=== PATIENT | female | born 1985 | race Caucasian/White ===

== ENCOUNTER → 2017-06-13 18:51 | Observation (INO) ==
--- NOTE | 2017-06-13 14:56 | OB/GYN History & Physical ---
Date of Encounter: 06/13/17 Time of Encounter: 14:54 Assessment and Plan (1) 32 weeks gestation of Current visit: Yes Status: Acute Patient admitted for observation (2) Hypertension affecting in third trimester Current visit: Yes Status: Acute BP on admission 174/103 and 181/107 IV labetalol 20mg IVP given PIH labs drawn Protein creat ratio sent to lab Dr. Vasquez notified Steriods after CBC History of Present Illness Chief complaint: Elevated BP at 32w4d HPI: Ms. Baker is a 31 year old female at 32w4d send to labor and delivery for PIH evaluation following her OB appointment. Patient had BP of 168/102 with 500 protein in her urine. Patient denies visual disturbances, epigastric pain, contractions, LOF or VB. Patient reports +FM and headache off and on that goes away without medication. Past Med Surg Social Fam HX - Past Medical History Source: patient Medical history: no medical history Psychiatric history: no psych history - Past Surgical History Surgical History: no surgical history - Social History Smoking Status: Never smoker Smokeless Tobacco Status: No Alcohol use: none Drug use: none Current living situation: Home - Independent Activity Level: Independent ambulation Recent Out of Country Travel Within the Last 8 Weeks: No Exposure or Possible Exposure to Illness During Travel: No - Family History Father Living Status: Still Living Hx Family Cardiac Disorders: Yes (HTN) Hx Family Respiratory Disorders: No Hx Family Cancer: No Hx Family GI Disorders: No Hx Family Genitourinary Disorders: No Hx Family Endocrine Disorder: No Hx Family Musculoskeletal Disorders: No Hx Family Neuromuscular Disorders: No Hx Family Neurologic Disorders: No Hx Family HEENT Disorders: No Hx Family Autoimmune Disorders: No Hx Family Reproductive Disorders: No Hx Family Psychosocial Disorders: No Hx Family Medical Disorders: No Obstetrical History - Pregnancies : 1 Para: 0 Term: 0 : 0 Ab's: 0 Livin Medications and Allergies Omeprazole [PriLOSEC] 20 mg PO DAILY 06/13/17 [History] Pnv Cmb#21/Iron/Folic Acid [ Complete Caplet] 1 each PO DAILY 06/13/17 [ History] 3 Allergy/AdvReac Type Severity Reaction Status Date / Time No Known Allergies Allergy Verified 06/13/17 14:13 Review of System OB - Constitutional Constitutional ROS IM: headache(s) (occasional), no chills, no fever(s) - Cardiovascular Cardiovascular: pedal edema (bilateral), no chest pain, no lightheadedness, no palpitations - Respiratory Respiratory: no cough, no wheezing - Gastrointestinal Gastrointestinal: no abdominal pain, no cramping, no diarrhea, no heartburn, no nausea, no vomiting - Genitourinary Genitourinary: no abnormal vaginal bleeding, no dysuria, no flank pain, no urinary frequency, no urinary incontinence, no urinary urgency, no vaginal discharge, no vaginal odor, no vaginal pruritis - Neurological Nerological: no dizziness, no loss of vision, no numbness, no syncope, no tingling, no vertigo Exam - Constitutional Constitutional: well developed, well nourished, no acute distress, average body habitus - HEENT HEENT: Normocephaly, Mucus Membranes Moist - Neck Neck exam: full ROM, supple - Lungs Respiratory exam: CTAB - Cardiovascular Cardiovascular exam: RRR, +S1, +S2 - Abdomen Abdomen: Present: bowel sounds normal, gravid, non tender - Extremities Extremities exam: full ROM, normal capillary refill, pedal edema (2+) Deep Tendon Reflex Grade: 2+ Normal (left side) - Vagina Vagina: Present: normal moisture - Uterus Uterus exam: Present: normal size, normal contour - Anus/Rectum Anus/Rectum: Present: normal perianal skin (FHR 135 bpm moderate amount variability No contractions noted) Results All other labs normal. - VTE Reasons for not Prescribing Prophylaxis: Treatment not Indicated - Low risk for VTE
[2017-06-13 15:40] LABS: Basophils % 0.2 %; Eosinophils % 0.2 %; Hematocrit 35.9 % (35.3-44.9); Hemoglobin 12.4 g/dL (11.5-15.4); Immature Granulocytes % 0.7 % (0-4); Lymphocytes % 17.6 %; Mean Corpuscular HGB Conc 34.5 g/dL (31.6-35.5); Mean Corpuscular Volume 83.9 fL (83.0-100.0); Mean Platelet Volume 12.2 fL (9.4-12.4); Monocytes # 0.8 K/mcL (0.0-1.3); Monocytes % 7.2 %; Neutrophils # 8.4 K/mcL (1.6-8.9); Nucleated Red Blood Cells 0.4 /100 WBC (0); Platelet Count 111 K/mcL (140-400); Red Blood Count 4.28 M/mcL (3.82-4.97); Red Cell Distribution Width 14.7 % (11.5-14.5); Segmented Neutrophils % 74.1 %
[2017-06-13 16:07] LABS: Amphetamine Screen,Urine Negative ng/mL (Cutoff=1000); Barbiturate Screen,Urine Negative ng/mL (Cutoff=200); Benzodiazepines Screen,Urine Negative ng/mL (Cutoff=200); Cannabinoid Screen,Urine Negative ng/mL (Cutoff = 50); Cocaine Screen,Urine Negative ng/mL (Cutoff= 300); Opiate Screen,Urine Negative ng/mL (Cutoff=300); Phencyclidine Screen,Urine Negative ng/mL (Cutoff=25)
[2017-06-13 17:37] LABS: Alanine Aminotransferase 78 Units/L (7-52); Aspartate Amino Transferase 53 Units/L (13-39); BUN/Creatinine Ratio 25 (6-26); Blood Urea Nitrogen 15 mg/dL (6-20); Lactate Dehydrogenase 297 Units/L (140-271); Uric Acid 7.4 mg/dL (2.3-7.6); eGFR For African Americans > 60 (> 60); eGFR For Non-African Americans > 60 (> 60)
[2017-06-13 17:44] VITALS: BP 176/106
[2017-06-13 17:44] LABS: Creatinine,Urine 198 mg/dL; Protein/Creatinine Ratio,Urine 8.09 mg/mg (0.00-0.20)
[~2017-06-13 18:51] MED LIST: *HR* Labetalol 20 MG/4 ML SYRINGE IVP STA; Betamethasone Acet/SodPhos 6 MG/ML MDV IM SCH; Calcium Gluconate 1,000 MG/10 ML VIAL IVPB PRN; Magnesium Sulfate 20 gm/500mL 20 GM/500 ML IV.SOLN IVC SCH; Ringers Solution, Lactated 1,000 ML IVC SCH; Ringers Solution, Lactated 1,000 ML ONE
--- NOTE | 2017-06-13 19:53 | Discharge Summary ---
Date of Encounter: 06/13/17 Time of Encounter: 18:00 - Discharge Diagnosis (1) First in adolescent 16 years of age or older in third trimester Priority: Primary Status: Acute (2) Severe preeclampsia Priority: Primary Status: Acute Comments: Patient was started on magnesium sulfate had received a dose of labetalol IV push and by mouth and 1 dose of hydralazine to get blood pressure under control. She received 1 dose of betamethasone unstable she was transferred to the [facility]. Qualifiers: Trimester: third trimester Qualified Code(s): O14.13 - Severe pre-eclampsia , third trimester (3) HELLP syndrome (HELLP), third trimester Priority: Primary Status: Acute (4) 32 weeks gestation of Priority: Primary Status: Acute - Discharge Medications Home Medications: Omeprazole [PriLOSEC] 20 mg PO DAILY 06/13/17 [History] Pnv Cmb#21/Iron/Folic Acid [ Complete Caplet] 1 each PO DAILY 06/13/17 [ History] Allergies/Adverse Reactions: 3 Allergy/AdvReac Type Severity Reaction Status Date / Time No Known Allergies Allergy Verified 06/13/17 14:13 Data Procedures and tests throughout hospitalization: Laboratory Tests 06/13/17 06/13/17 06/13/17 13:57 14:48 15:30 WBC 11.3 H RBC 4.28 Hgb 12.4 Hct 35.9 MCV 83.9 MCH 29.0 MCHC 34.5 RDW 14.7 H Plt Count 111 L MPV 12.2 Immature Gran % 0.7 Seg Neutrophils % 74.1 Lymphocytes % 17.6 Monocytes % 7.2 Eosinophils % 0.2 Basophils % 0.2 Neutrophils # 8.4 Lymphocytes # 2.0 Monocytes # 0.8 Eosinophils # 0.0 Basophils # 0.0 Nucleated RBCs/100 WBC 0.4 H BUN Creatinine Est GFR ( Amer) Est GFR (Non-Af Amer) BUN/Creatinine Ratio Uric Acid AST ALT Lactate Dehydrogenase Urine Creatinine 198 Protein/Creatinin Ratio 8.09 H Urine Total Protein 1602 H Urine Opiates Screen Negative Ur Barbiturates Screen Negative Ur Phencyclidine Scrn Negative Ur Amphetamines Screen Negative U Benzodiazepines Scrn Negative Urine Cocaine Screen Negative U Marijuana (THC) Screen Negative Specimen Rejected Clotted 06/13/17 17:20 WBC RBC Hgb Hct MCV MCH MCHC RDW Plt Count MPV Immature Gran % Seg Neutrophils % Lymphocytes % Monocytes % Eosinophils % Basophils % Neutrophils # Lymphocytes # Monocytes # Eosinophils # Basophils # Nucleated RBCs/100 WBC BUN 15 Creatinine 0.61 Est GFR ( Amer) > 60 Est GFR (Non-Af Amer) > 60 BUN/Creatinine Ratio 25 Uric Acid 7.4 AST 53 H ALT 78 H Lactate Dehydrogenase 297 H Urine Creatinine Protein/Creatinin Ratio Urine Total Protein Urine Opiates Screen Ur Barbiturates Screen Ur Phencyclidine Scrn Ur Amphetamines Screen U Benzodiazepines Scrn Urine Cocaine Screen U Marijuana (THC) Screen Specimen Rejected Labs on day of discharge: Labs from last 24 hours 06/13/17 06/13/17 06/13/17 17:20 15:30 14:48 WBC 11.3 H RBC 4.28 Hgb 12.4 Hct 35.9 MCV 83.9 MCH 29.0 MCHC 34.5 RDW 14.7 H Plt Count 111 L MPV 12.2 Immature Gran % 0.7 Seg Neutrophils % 74.1 Lymphocytes % 17.6 Monocytes % 7.2 Eosinophils % 0.2 Basophils % 0.2 Neutrophils # 8.4 Lymphocytes # 2.0 Monocytes # 0.8 Eosinophils # 0.0 Basophils # 0.0 Nucleated RBCs/100 WBC 0.4 H BUN 15 Creatinine 0.61 Est GFR ( Amer) > 60 Est GFR (Non-Af Amer) > 60 BUN/Creatinine Ratio 25 Uric Acid 7.4 AST 53 H ALT 78 H Lactate Dehydrogenase 297 H Urine Creatinine Protein/Creatinin Ratio Urine Total Protein Urine Opiates Screen Ur Barbiturates Screen Ur Phencyclidine Scrn Ur Amphetamines Screen U Benzodiazepines Scrn Urine Cocaine Screen U Marijuana (THC) Screen Specimen Rejected Clotted 06/13/17 13:57 WBC RBC Hgb Hct MCV MCH MCHC RDW Plt Count MPV Immature Gran % Seg Neutrophils % Lymphocytes % Monocytes % Eosinophils % Basophils % Neutrophils # Lymphocytes # Monocytes # Eosinophils # Basophils # Nucleated RBCs/100 WBC BUN Creatinine Est GFR ( Amer) Est GFR (Non-Af Amer) BUN/Creatinine Ratio Uric Acid AST ALT Lactate Dehydrogenase Urine Creatinine 198 Protein/Creatinin Ratio 8.09 H Urine Total Protein 1602 H Urine Opiates Screen Negative Ur Barbiturates Screen Negative Ur Phencyclidine Scrn Negative Ur Amphetamines Screen Negative U Benzodiazepines Scrn Negative Urine Cocaine Screen Negative U Marijuana (THC) Screen Negative Specimen Rejected Date of admission: 06/13/17 13:45 Primary care physician: Amanda Dumont CNP Discharging clinician: Bryant Vasquez Anticipated date of discharge: 06/13/17 - Patient Status Disposition: Transfer Other Condition: Critical Functional capacity at discharge: bed bound Overall status at discharge: patient is not back to baseline - Discharge Instructions Follow Up With: Amanda Dumont CNP [Primary Care Provider] - Kiersten Barron DO [Partnered Physician] - - Diet and Activity Activity: other Hospital Course [employer]MI[employer] Reason for admission: other (Intrauterine at 32-4/7 weeks, severe preeclampsia in HELLP syndrome) Discharge diagnosis: other (Same) Hospital course: Patient is a 31-year-old at 32-4/7 weeks who was sent in from the office secondary to elevated blood pressures with proteinuria. Patient had had no complications by today she was noted to have this elevated blood pressure 500 on protein dip and increase in edema she was not complaining of any headaches blurred vision or scotoma. Patient had markedly elevated blood pressures when she arrived she was given 1 dose of labetalol 20 mg IV push to bring the blood pressure down and we placed her on 200 mg labetalol by mouth. Patient to get PIH labs but in the process of waiting for the labs to come back patient blood pressure started to creep up we decided this time was started on magnesium sulfate for gram loading dose and 2 g an hour for possible preeclampsia patient' s blood pressure continued to elevate we gave her 1 dose of hydralazine 10 mg and blood pressures stabilized. Patient's PIH labs to come back abnormal patient's platelets were low liver enzymes were elevated and she had approaching creatinine ratio of 8.09. Case was discussed with [facility] who accepted the transfer due to patient's status and patient was transferred by EMS with magnesium sulfate running. Blood pressure upon discharge was stable and she was still asymptomatic. Time Attestation: Total time spent providing and/or coordinating discharge services: Exam - Constitutional Vitals: Pulse Resp BP 82 16 176/106 06/13/17 17:36 06/13/17 17:36 06/13/17 17:36 General appearance IM: mild distress, A&O X 3 - Respiratory Respiratory exam: Present: CTAB - Cardiovascular Cardiovascular exam IM: Present: RRR - External exam: swelling - VTE Reasons for not Prescribing Prophylaxis: Treatment not Indicated - Low risk for VTE
== END | disposition other institution (70) ==
LOC: 1NENULAB
PROVIDERS: ADMIT Obstetrics & Gynecology; ATTEND Obstetrics & Gynecology

== ENCOUNTER → 2019-12-13 12:01 | Observation (INO) | END | disposition home or self-care (01) | LOC: 1NENULAB | PROVIDERS: ADMIT Obstetrics & Gynecology; ATTEND Obstetrics & Gynecology ==

== ENCOUNTER → 2019-12-14 23:23 | Observation (INO) | END | disposition home or self-care (01) | LOC: 1NENULAB | PROVIDERS: ADMIT Obstetrics & Gynecology; ATTEND Obstetrics & Gynecology ==

== ENCOUNTER 2019-12-15 14:15 | Inpatient (IN) ==
[2019-12-15 13:25] LABS: Basophils % 0.3 %; Eosinophils % 0.1 %; Hematocrit 39.5 % (35.3-44.9); Hemoglobin 13.3 g/dL (11.5-15.4); Immature Granulocytes % 0.6 % (0-4); Lymphocytes # 1.7 K/mcL (0.6-4.6); Lymphocytes % 14.5 %; Mean Corpuscular HGB Conc 33.7 g/dL (31.6-35.5); Mean Corpuscular Hemoglobin 29.4 pg (28.0-33.3); Mean Corpuscular Volume 87.4 fL (83.0-100.0); Mean Platelet Volume 11.3 fL (9.4-12.4); Monocytes # 0.7 K/mcL (0.0-1.3); Monocytes % 5.8 %; Neutrophils # 9.1 K/mcL (1.6-8.9); Platelet Count 237 K/mcL (140-400); Red Blood Count 4.52 M/mcL (3.82-4.97); Red Cell Distribution Width 16.1 % (11.5-14.5); Segmented Neutrophils % 78.7 %; White Blood Count 11.5 K/mcL (4.3-11.1)
[2019-12-15 13:30] LABS: Amphetamine Screen,Urine Negative ng/mL (Cutoff=1000); Barbiturate Screen,Urine Negative ng/mL (Cutoff=200); Benzodiazepines Screen,Urine Negative ng/mL (Cutoff=200); Cannabinoid Screen,Urine Negative ng/mL (Cutoff = 50); Cocaine Screen,Urine Negative ng/mL (Cutoff= 300); Creatinine,Urine 81 mg/dL; Opiate Screen,Urine Negative ng/mL (Cutoff=300); Phencyclidine Screen,Urine Negative ng/mL (Cutoff=25); Protein/Creatinine Ratio,Urine 0.16 mg/mg (0.00-0.20)
[2019-12-15 13:41] LABS: Alanine Aminotransferase 16 Units/L (7-52); Aspartate Amino Transferase 15 Units/L (13-39); BUN/Creatinine Ratio 15 (6-26); Blood Urea Nitrogen 8 mg/dL (6-20); Calcium 9.5 mg/dL (8.6-10.3); Carbon Dioxide 21 mEq/L (23-29); Chloride 106 mEq/L (98-107); Glucose 74 mg/dL (70-105); Lactate Dehydrogenase 149 Units/L (140-271); Osmolality,Calculated 283 (280-300); Potassium 3.5 mEq/L (3.5-5.1); Sodium 138 mEq/L (136-145); Uric Acid 5.7 mg/dL (2.3-7.6); eGFR For African Americans > 60 (> 60); eGFR For Non-African Americans > 60 (> 60)
[~2019-12-15 14:15] MED LIST changes: -*HR* Labetalol 20 MG/4 ML SYRINGE IVP STA; -Betamethasone Acet/SodPhos 6 MG/ML MDV IM SCH; -Calcium Gluconate 1,000 MG/10 ML VIAL IVPB PRN; +CeFAZolin 2,000 MG/50 ML BAG IVPB ONE; +Famotidine 20 MG/2 ML VIAL IVP ONE; -Magnesium Sulfate 20 gm/500mL 20 GM/500 ML IV.SOLN IVC SCH; +Metoclopramide 10 MG/2 ML VIAL IVP ONE; -Ringers Solution, Lactated 1,000 ML ONE
[2019-12-15] MEDS ORDERED: EPHEDrine 50 MG/ML VIAL ONE (14:28)
[2019-12-15] MEDS ORDERED: *HR* Morphine Sulfate/PF 10 MG/10 ML AMPUL ONE (14:28)
[2019-12-15] MEDS ORDERED: *HR* Oxytocin 10 UNIT/ML VIAL IM ONE (14:28)
[2019-12-15] MEDS ORDERED: *HR* FentaNYL (PF) 100 MCG/2 ML VIAL ONE (14:28)
[2019-12-15] MEDS ORDERED: Ondansetron 4 MG/2 ML VIAL IVP ONE (14:38)
[2019-12-15] MEDS ORDERED: *HR* Promethazine 25 MG/ML VIAL IVP PRN (14:38)
[2019-12-15] MEDS ORDERED: *HR* HYDROmorphone PF 0.5 MG/0.5 ML SYRINGE IVP PRN (14:38)
[2019-12-15] MEDS ORDERED: *HR* OxyCODONE Immed Rel 5 MG TABLET PO PRN (14:38)
[2019-12-15] MEDS ORDERED: Acetaminophen IV 1,000 MG/100 ML INFUS..BTL ONE (15:02)
[2019-12-15] MEDS ORDERED: Ondansetron 4 MG/2 ML VIAL ONE (15:02)
[2019-12-15] MEDS ORDERED: Ringers Solution, Lactated 1,000 ML ONE (15:02)
[2019-12-15] MEDS ORDERED: Oxytocin 20 units/ LR 1000 mL 20 UNIT/1,000 ML BAG IVC ONE (15:56)
[2019-12-15] MEDS ORDERED: Oxytocin 20 units/ LR 1000 mL 20 UNIT/1,000 ML BAG IVC SCH (18:49)
[2019-12-15] MEDS ORDERED: Metoclopramide 10 MG/2 ML VIAL IVP PRN (18:49)
[2019-12-15] MEDS ORDERED: Ondansetron 4 MG/2 ML VIAL IVP PRN (18:49)
[2019-12-15] MEDS ORDERED: *HR* OxyCODONE/APAP 5/325 TABLET PO PRN (18:49)
[2019-12-15] MEDS ORDERED: Rho Immune Globulin 1,500 UNIT SYRINGE IM ONE (18:49)
[2019-12-15] MEDS ORDERED: Sennosides 8.6 MG TABLET PO PRN (18:49)
[2019-12-15] MEDS ORDERED: Simethicone 80 MG TAB.CHEW PO PRN (18:49)
[2019-12-15] MEDS: Ibuprofen 600 MG TABLET PO PRN (19:36)
[2019-12-15] MEDS: ceFAZolin 1,000 MG in Water for inj. (sterile) 10 ML IVP SCH (23:28)
[2019-12-16] MEDS: Ibuprofen 600 MG TABLET PO PRN ×4 (02:11→20:15)
[2019-12-16 05:24] LABS: Basophils % 0.1 %; Eosinophils % 0.1 %; Hematocrit 32.1 % (35.3-44.9); Immature Granulocytes % 0.4 % (0-4); Lymphocytes # 1.6 K/mcL (0.6-4.6); Lymphocytes % 11.6 %; Mean Corpuscular HGB Conc 33.6 g/dL (31.6-35.5); Mean Corpuscular Hemoglobin 29.4 pg (28.0-33.3); Mean Corpuscular Volume 87.5 fL (83.0-100.0); Mean Platelet Volume 11.3 fL (9.4-12.4); Monocytes # 1.1 K/mcL (0.0-1.3); Monocytes % 7.9 %; Neutrophils # 11.2 K/mcL (1.6-8.9); Platelet Count 202 K/mcL (140-400); Red Blood Count 3.67 M/mcL (3.82-4.97); Segmented Neutrophils % 79.9 %
[2019-12-16 05:29] LABS: Hemoglobin 10.8 g/dL (11.5-15.4)
[2019-12-16] MEDS: ceFAZolin 1,000 MG in Water for inj. (sterile) 10 ML IVP SCH ×2 (08:08→16:22)
[2019-12-16] MEDS: Prenatal Vit/FA 1 EACH TABLET PO SCH (08:09)
[2019-12-17] MEDS: Ibuprofen 600 MG TABLET PO PRN ×2 (02:28→08:26)
[2019-12-17] MEDS: Prenatal Vit/FA 1 EACH TABLET PO SCH (08:25)
[2019-12-17 08:31] VITALS: BP 119/71
== END 2019-12-17 12:22 | disposition home or self-care (01) | DRG 788 ==
LOC: 1NENULAB → 1NENUOBS 18:11
PROVIDERS: ADMIT Obstetrics & Gynecology; ATTEND Obstetrics & Gynecology